=== PATIENT | female | born 1935 | race Caucasian/White ===

== ENCOUNTER 2018-01-14 01:28 | Emergency (ER) | payer OTHER, MEDICAID ==
[~2018-01-14] VITALS: Ht 165.1 cm; Wt 63.5 kg
--- NOTE | 2018-01-14 01:29 | NUR ---
Patient to ER bed 5 to gown for evaluation. Side rails up. Report given to Parisa.
[2018-01-14 01:31] VITALS: BP_SYST 152
--- NOTE | 2018-01-14 01:33 | NUR ---
Placed on O2 monitor, lights dimmed for comfort.
--- NOTE | 2018-01-14 01:33 | NUR ---
ER Dr. Andrew at bedside examining patient.
--- NOTE | 2018-01-14 01:43 | NUR ---
Note ginafabienne in EDM - 01/14/18 at 0255 by JOZEF Patient presents to ED via BLS ambulance. Dried blood to nares bilaterally, bruising to upper lip notes. Per EMS patient rolled out of bed and hit her face on her nightstand, then tried to stand and hit her face again. Hx of dementia, patient is poor historian.
[2018-01-14] MEDS ORDERED: DIPH-TET-PERTUS Vaccine 0.5 ML VIAL (ADACEL) I.M. ONE (01:45)
[2018-01-14] MEDS ORDERED: KETOROLAC TROMETHAMINE 60 MG/2 ML VIAL IM ONE (01:45)
--- NOTE | 2018-01-14 01:49 | NUR ---
Patient presents to ED via BLS ambulance. Dried blood to nares bilaterally, bruising to upper lip notes. Per EMS patient rolled out of bed and hit her face on her nightstand, then tried to stand and hit her face again. Hx of dementia, patient is poor historian. Per chart from [facility] patient is non-ambulatory. Med Rec updated.
--- NOTE | 2018-01-14 02:05 | NUR ---
patient medciated with TDAP and toradol per orders. given extra warm blankets.
--- NOTE | 2018-01-14 02:10 | NUR ---
Patient transported to radiology via gurney, accompanied by pv installer tech.
--- NOTE | 2018-01-14 02:35 | NUR ---
Returned from radiology, back to [facility].
[2018-01-14] MEDS ORDERED: DONE10TA44 PO (02:53)
[2018-01-14] MEDS ORDERED: CHOL20004 PO (02:53)
[2018-01-14] MEDS ORDERED: MEMA5TAB PO (02:53)
[2018-01-14] MEDS ORDERED: ESCI10TA PO (02:53)
[2018-01-14] MEDS ORDERED: LIP20 PO (02:53)
[2018-01-14] MEDS ORDERED: PEDI1TAB28 PO (02:53)
[2018-01-14] MEDS ORDERED: ASPI-1153 PO (02:53)
[2018-01-14] MEDS ORDERED: CRAN1POW2 MC (02:54)
--- NOTE | 2018-01-14 02:57 | NUR ---
patient given more warm blankets. sleeping in bed, appears comfortable.
--- NOTE | 2018-01-14 03:25 | NUR ---
Patient resting, sleeping but tossing and turning in sleep.
[2018-01-14] MEDS ORDERED: CLINDAMYCIN PHOSPHATE 300 MG/2 ML VIAL IM ONE (04:45)
--- NOTE | 2018-01-14 04:45 | NUR ---
Patient medicated per orders. Orders to DC home given, unable to get transportation until 0830
--- NOTE | 2018-01-14 05:42 | NUR ---
Patient sleeping. No signs of distress.
--- NOTE | 2018-01-14 07:05 | NUR ---
Assumed care from MAGGIE Mccauley. Patient resting comfortably and awaiting discharge, ambulance scheduled for 829 for transport to [facility].
[2018-01-14 08:04] VITALS: BP_SYST 137
--- NOTE | 2018-01-14 08:05 | NUR ---
Patient given written and verbal discharge instructions and verbalizes understanding. ER MD discussed with patient the results and treatment provided. Patient in stable condition. ID arm band removed. No Rx given. Patient educated on pain management and to follow up with PMD. Pain Scale 1/10. Opportunity for questions provided and answered. Patient has intermittent confusion noted, attempted signature.
== END 2018-01-14 08:05 ==
LOC: SED 01:28
DX: S02.2XXB Fracture of nasal bones, initial encounter for open fracture (principal); Z79.82 Long term (current) use of aspirin; Z79.899 Other long term (current) drug therapy; W22.8XXA Striking against or struck by other objects, initial encounter; Y93.89 Activity, other specified; Y92.89 Other specified places as the place of occurrence of the external cause; Y99.8 Other external cause status
CPT/HCPCS: 70450; 70486; 71045; 71100; 72125; 90471; 90715; 96372; 99284; J1885; J3490

== ENCOUNTER 2018-07-06 00:14 | Emergency (ER) | payer OTHER, MEDICAID ==
[~2018-07-06] VITALS: Ht 165.1 cm; Wt 61.2 kg
[2018-07-06 00:14] VITALS: BP_SYST 125
[~2018-07-06 00:14] MED LIST: ASPI-1153 PO; CHOL20004 PO; CRAN1POW2 MC; DONE10TA44 PO; ESCI10TA PO; LIP20 PO; MEMA5TAB PO; PEDI1TAB28 PO
[2018-07-06] MEDS ORDERED: NACL 0.9% 500 ML IV ONE (00:30)
[2018-07-06] MEDS ORDERED: MEMA10TA21 PO (00:34)
[2018-07-06] MEDS ORDERED: CRAN500T PO (00:37)
[2018-07-06] MEDS ORDERED: ONDA4TAB5 PO (00:38)
[2018-07-06] MEDS ORDERED: DIVA-72 PO (00:39)
[2018-07-06] MEDS ORDERED: LOPE2CAP PO (00:40)
[2018-07-06] MEDS ORDERED: TRAM50TA2 PO (00:42)
[2018-07-06] MEDS ORDERED: [UNRECOGNIZED DRUG - CODE] TP (00:45)
[2018-07-06 00:46] LABS: HEMATOCRIT 35.8 % (36-48); HEMOGLOBIN 12.2 g/dL (12.0-16.0); MEAN CORPUSCULAR HEMOGLOBIN 30 pg (27-31); MEAN CORPUSCULAR HGB CONC 34 % (32-36); MEAN CORPUSCULAR VOLUME 89 fL (79.0-98.0); PLATELET COUNT (AUTO) 229 K/uL (130-430); RED BLOOD CELL COUNT(AUTO) 4.04 MIL/uL (4.2-6.2); RED CELL DISTRIBUTION WIDTH 13.7 % (9.0-15.0); WHITE BLOOD COUNT (AUTO) 6.6 K/uL (4.8-10.8)
[2018-07-06 00:47] LABS: BASOPHILS % (AUTO) 0.5 % (0.0-2.0); EOSINOPHILS # (AUTO) 0.2 K/uL (0.0-0.4); EOSINOPHILS % (AUTO) 3.3 % (0.0-4.0); LYMPHOCYTES # (AUTO) 1.8 K/uL (1.0-5.5); LYMPHOCYTES % (AUTO) 27.6 % (20.5-51.5); MONOCYTES # (AUTO) 0.9 K/uL (0.0-1.0); MONOCYTES % (AUTO) 13.2 % (1.7-9.3); NEUTROPHILS # (AUTO) 3.7 K/uL (1.8-7.7); NEUTROPHILS % (AUTO) 55.4 % (40.0-70.0)
[2018-07-06] MEDS ORDERED: ACET167L15 PO (00:47)
[2018-07-06 00:55] LABS: ANION GAP 7 (5-15); CALCIUM 8.7 mg/dL (8.4-11.0); CHLORIDE 99 mmol/L (98-107); CREATININE 0.64 mg/dL (0.55-1.30); GLUCOSE 88 mg/dL (70-99); POTASSIUM 3.9 mmol/L (3.5-5.1); SODIUM SERUM 134 mmol/L (136-145); UREA NITROGEN, BLOOD 16 mg/dL (8-21)
[2018-07-06 00:59] LABS: INR 1.1 (0.8-1.2); PROTHROMBIN TIME 11.2 SECS (9.5-12.5)
[2018-07-06 01:00] LABS: ALANINE AMINOTRANSFERASE 17 U/L (12-78); ALBUMIN 2.7 g/dL (3.4-4.8); ASPARTATE AMINOTRANSFERASE 28 U/L (10-37); TOTAL BILIRUBIN 0.7 mg/dL (0.0-1.0)
[2018-07-06] MEDS ORDERED: KETOROLAC TROMETHAMINE 30 MG VIAL IVP ONE (01:30)
[2018-07-06 01:45] VITALS: BP_SYST 125
== END 2018-07-06 01:45 | disposition home or self-care (01) ==
LOC: SED 00:14
DX: S52.021A Displaced fracture of olecranon process without intraarticular extension of right ulna, initial encounter for closed fracture (principal); F03.90 Unspecified dementia, unspecified severity, without behavioral disturbance, psychotic disturbance, mood disturbance, and anxiety; I10 Essential (primary) hypertension; Z79.82 Long term (current) use of aspirin; Z79.899 Other long term (current) drug therapy; W19.XXXA Unspecified fall, initial encounter; Y93.89 Activity, other specified; Y92.89 Other specified places as the place of occurrence of the external cause; Y99.8 Other external cause status
CPT/HCPCS: 29105; 36415; 73090; 80053; 85025; 85610; 85730; 96374; 99284; J1885